=== PATIENT | female | born 1965 | race Caucasian/White ===

== ENCOUNTER 2024-12-23 22:42 | Emergency (ER) | payer MEDICARE, MEDICAID ==
[~2024-12-23] VITALS: Ht 172.7 cm; Wt 92.3 kg
[~2024-12-23 22:42] MED LIST: ALPR-624 PO; BUPR300T99 PO; CHOL10002 PO; CYAN25003 PO; GABA-535 PO; LEVO125T69 PO; LIOT25TA6 PO; METF1000 PO; MORP30TA PO; MULT-620 PO; NALO25TA4 PO; OMEG1CAP2 PO; OXYC-138 PO; PRAS25CA7 PO; TAMS0.4C32 PO
--- NOTE | 2024-12-23 22:47 | Physician Documentation ---
History of Present Illness ~ Stated Complaint: CHEST PAIN Time Seen by MD: 22:46 Primary Medical Doctor: judith [facility] 59-year-old female presenting with chest pain. Per EMS, she arrives from a rehab center. She is there for a complicated injury to her left leg status post surgery. She had an episode of chest pain earlier this evening, that was initially central chest pain and then on the left side. She was given aspirin at the facility. By time of EMS arrival her chest pain had stopped. She is currently asymptomatic. No other interventions during transport. I spoke to the patient and her . They state that she was having heartburn type symptoms all day. She states that when she was eating or drinking she felt like it got stuck in her throat and she was having acid symptoms. This evening, she was sitting, and suddenly developed tightness in her left chest that radiated to her left arm. During this time she felt short of breath and sweaty. It lasted for about 20 minutes. No history of similar pain ever. Currently she denies any pain like this. She denies any history of heart problems except for a heart murmur. She is a nonsmoker. Denies hypertension. She does have high cholesterol. No diabetes. She does report chronic pain in her left leg related to her past surgery. She is in a cast. No posterior calf or thigh tenderness. No pleuritic chest pain. Medication Reconciliation Allergies: Coded Allergies: duloxetine HCl (Unverified Allergy, Intermediate, Rash, 12/23/24) iodine (Verified Allergy, Mild, rash, 04/18/14) during chemo duloxetine (Verified Allergy, Unknown, 03/27/14) hydromorphone (Verified Allergy, Unknown, 04/18/14) tizanidine (Verified Allergy, Unknown, 04/18/14) Scheduled Bupropion HCl (Bupropion Xl), 1 TABLET PO DAILY, (Reported) Cholecalciferol (Vitamin D3) (Vitamin D3), 1 TABLET PO DAILY, (Reported) Cyanocobalamin (Vitamin B-12) (Vitamin B-12), 2,500 MCG PO DAILY, (Reported) Levothyroxine Sodium* (Levoxyl*), 125 MCG PO DAILY, (Reported) Liothyronine Sodium (Cytomel), 1 TAB PO QAM, (Reported) Metformin Hcl* (Glucophage*), 1 TAB PO BID, (Reported) Multivitamins (Multivitamins), 1 EACH PO DAILY, (Reported) Naloxegol Oxalate (Movantik), 1 TAB PO DAILY, (Reported) Hague-3 Fatty Acids/Fish Oil (Fish Oil 1,000 mg Capsule), 1 CAP PO DAILY, (Reported) Prasterone (Dhea) (Dhea 25), 1 CAP PO DAILY, (Reported) Tamsulosin Hcl (Tamsulosin Hcl), 1 CAP PO HS, (Reported) Scheduled PRN Alprazolam* (Xanax*), 1 MG PO TID PRN for for anxiety/agitation, (Reported) Gabapentin (Gabapentin), 2 CAP PO Q6H PRN for muscle spasms, (Reported) Morphine Sulfate (Morphine Sulfate), 30 MG PO BID PRN for pain, (Reported) Oxycodone HCl/Acetaminophen (Endocet 10-325 mg Tablet), 1 TABLET PO TID PRN for breakthrough pain, (Reported) Past Medical History Past Medical History: Anemia, Renal Disease, UTI, Extremity Fracture, Spine Compression Past Surgical History: appendectomy, cholecystectomy, gastric bypass, tonsillectomy Other Past Surgical History: heart cath, back surgery Alcohol Use: Occasionally Drug Use: none Lives with: Family Lives In: Home Review of Systems Respiratory: Reports: shortness of breath Cardiovascular: Reports: chest pain, diaphoresis Gastrointestinal: Reports: nausea; Denies: abdominal pain Physical Exam Physical Exam General: This is a pleasant and overall well-appearing middle-aged woman, at bedside HEENT: Atraumatic, oropharynx is moist Heart: Mild tachycardic, appears regular, normal-appearing peripheral perfusion Lungs: Clear breath sounds bilateral, normal work of breathing, normal oxygen saturation on room air Chest wall: No chest wall tenderness on palpation Abdomen: Soft, nondistended, nontender all quadrants including in the epigastric region Extremities: Warm and well-perfused. Cast over the left lower leg and foot. She is able to wiggle her toes. She does not have sensation in the left toes, but states this is chronic. No posterior calf or thigh tenderness. Neuro: Alert and oriented, no focal deficits Psychiatric: Calm and cooperative with exam Progress Results/Orders Results/Orders Orders - GUERA SANTIAGO MD Chest,Single View (12/23/24 22:46) Monitor (12/23/24 22:46) Saline Lock (12/23/24 22:46) Oxygen (12/23/24 22:46) Electrocardiogram (12/23/24 22:46) Hs Troponin I W Calculations (12/24/24 01:46) Completed Orders - GUERA SANTIAGO MD Chest,Single View (12/23/24 22:46) Cbc/Diff (12/23/24 22:46) PBNP (12/23/24 22:46) CMP (12/23/24 22:46) Hs Troponin I W Calculations (12/23/24 22:46) Hs Troponin I W Calculations (12/24/24 00:46) Vital Signs 12/23/24 12/23/24 12/24/24 12/24/24 22:51 23:05 00:00 01:45 Temp 98.6 Pulse 91 75 76 Resp 17 18 14 14 B/P (MAP) 140/89 126/75 (92) 106/63 (77) Pulse Ox 98 96 96 12/24/24 12/24/24 02:30 02:38 Pulse 75 75 Resp 14 14 B/P (MAP) 133/95 (108) 133/95 Pulse Ox 96 96 Laboratory Tests Test 12/23/24 23:00 12/24/24 01:02 White Blood Count 7.6 Red Blood Count 3.91 L Hemoglobin 11.1 L Hematocrit 32.5 L Mean Corpuscular Volume 83.3 Mean Corpuscular Hemoglobin 28.5 Mean Corpuscular Hemoglobin Concent 34.3 Red Cell Distribution Width 14.8 H Platelet Count 356 Mean Platelet Volume 7.0 L Neutrophils (%) (Auto) 63.5 Lymphocytes (%) (Auto) 26.8 Monocytes (%) (Auto) 5.0 Eosinophils (%) (Auto) 3.8 Basophils (%) (Auto) 0.9 Neutrophils # (Auto) 4.8 Lymphocytes # (Auto) 2.0 Monocytes # (Auto) 0.4 Eosinophils # (Auto) 0.3 Basophils # (Auto) 0.1 CBC Comment Sodium Level 136 Potassium Level 4.6 Chloride Level 98 L Carbon Dioxide Level 26.8 Anion Gap 11 Blood Urea Nitrogen 25 H Creatinine 1.10 H Estimated GFR/1.73 m2 51 BUN/Creatinine Ratio 22.7 H Glucose Level 153 H Calcium Level 9.1 Total Bilirubin 0.2 Aspartate Amino Transf (AST/SGOT) 18 Alanine Aminotransferase (ALT/SGPT) 21 Alkaline Phosphatase 119 H Troponin I High Sensitivity 6 4 Pro-B-Type Natriuretic Peptide 127 H Total Protein 6.3 L Albumin 3.0 L Globulin 3.3 Albumin/Globulin Ratio 0.9 L Chemistry Comments Troponin I High Sens Percent Delta 33 Troponin I Hi Sens Absolute Change -2 EKG/XRAY/CT/US/VASC/MRI EKG : Additional Comment I personally interpreted the EKG and this shows: Sinus rhythm, rate 79, QTC 498, mild J-point elevation in the anterior leads, but no reciprocal ST depression or other acute ischemic changes, incomplete left bundle branch block Chest X-Ray : Additional Comments I personally reviewed the x-ray, and it shows: No focal consolidation, no pulmonary edema, no mediastinal widening Heart Score: Heart Score Response (Comments) Value History Moderate Suspicious 1 EKG Normal 0 Age 45-64 1 Risk Factors 1 or 2 risk factors 1 Troponin Normal limit 0 Total 3 Medical Decision Making Heart Score: 3 Differential Dx:Considerations: Include: angina, chest wall pain, cholelithiasis, CHF, costochondritis, esophageal reflux/spasm, myocardial infarction, pericarditis, pneumonia, pulmonary embolus Assessment 59-year-old female presenting with chest pain. She does have significant symptoms of gastritis and esophagitis as well. By time of my evaluation her chest pain has resolved. Her workup was unremarkable including 2 normal troponins, reassuring EKG, and normal chest x-ray. I had a long discussion with her regarding the results of her testing. I explained I do not know the exact cause of her chest pain, it still could be cardiac although it seen in more likely to be GI related. After this discussion she requested to go home. I feel this is reasonable, she will contact her primary doctor to discuss whether she needs further cardiac testing or a stress test. Return precautions given if she does develop worsening symptoms. Departure Time of Disposition: 02:09 Disposition: 01 HOME / SELF CARE / HOMELESS Impression: Primary Impression: Acute chest pain Condition: Stable Discharge Instructions: Nonspecific Chest Pain, Adult Referrals: NO PRIMARY CARE PROVIDER (PCP) Education Educated: Patient Educated regarding: diagnosis Signature Scribe Signature: na Attestation: GUERA Shepherd MD December 23, 2024 22:47
[2024-12-23 22:51] VITALS: TEMP 98.6
[2024-12-23 23:12] LABS: BASOPHILS # (AUTO) 0.1 X10'3 (0-0.2); BASOPHILS % (AUTO) 0.9 % (0-1); EOSINOPHILS # (AUTO) 0.3 X10'3 (0-0.9); EOSINOPHILS % (AUTO) 3.8 % (0-6); HEMATOCRIT 32.5 % (35.0-45.0); HEMOGLOBIN 11.1 g/dl (12.0-16.0); LYMPHOCYTES % (AUTO) 26.8 % (21-51); MEAN CORPUSCULAR HEMOGLOBIN 28.5 PG (27.0-31.0); MEAN CORPUSCULAR HGB CONC 34.3 g/dL (33.0-36.5); MEAN CORPUSCULAR VOLUME 83.3 FL (78-98); MONOCYTES # (AUTO) 0.4 X10'3 (0-0.9); NEUTROPHILS # (AUTO) 4.8 X10'3 (1.8-7.7); NEUTROPHILS % (AUTO) 63.5 % (42-75); PLATELET COUNT 356 X10'3 (140-440); RED BLOOD COUNT 3.91 X10'6 (4.20-5.60); RED CELL DISTRIBUTION WIDTH 14.8 % (11.5-14.5); WHITE BLOOD COUNT 7.6 X10'3 (4.5-11.0)
--- NOTE | 2024-12-23 23:21 | RADIOLOGY REPORT ---
CHEST RADIOGRAPH Indication: CP Technique: Single frontal view of the chest was obtained COMPARISON: None FINDINGS: Lines and Tubes: None. Multiple surgical clips noted in left axilla. Partially visualized ACDF in ce rvical spine. Lungs: Clear. Pleura: No effusion. No pneumothorax. Cardiomediastinal contours: Unremarkable IMPRESSION: No abnormality demonstrated.
[2024-12-23 23:28] LABS: ALANINE AMINOTRANSFERASE 21 U/L (12-78); ALBUMIN/GLOBULIN RATIO 0.9 (1.1-1.5); ALKALINE PHOSPHATASE 119 IU/L (46-116); BILIRUBIN,TOTAL 0.2 MG/DL (0.1-1.0); BLOOD UREA NITROGEN 25 MG/DL (7-18); BUN/CREATININE RATIO 22.7 (10.0-20.0); CALCIUM 9.1 MG/DL (8.5-10.1); GLUCOSE 153 MG/DL (70-104); TOTAL CARBON DIOXIDE 26.8 MMOL/L (24-32); TOTAL PROTEIN 6.3 G/DL (6.4-8.2); eCRCL 56 ML/MIN; eGFR 51 ML/MIN
[2024-12-23 23:34] LABS: PRO BRAIN NATRIURETIC PEPTIDE 127 PG/ML (0-125)
[2024-12-23 23:43] LABS: ANION GAP 11 (8-16); ASPARTATE AMINO TRANSFERASE 18 U/L (10-37); CHLORIDE 98 MMOL/L (99-107); SODIUM 136 MMOL/L (135-145)
[2024-12-23 23:44] LABS: POTASSIUM 4.6 MMOL/L (3.5-5.1)
[2024-12-24 02:38] VITALS: BP 133/95; PULSE 75; RESP 14; O2SAT 96
--- NOTE | 2024-12-24 08:04 | ELECTROCARDIOGRAPH REPORT ---
[facility] Test Date: 2024-12-23 Test Time: 22:48:09 Pat Name: BAUTISTA HOLDER Department: EMERGENCY ROOM Room: Gender: F [employer] Manager: : [id number] Requested By: GUERA SANTIAGO Order Number: [id number] Reading MD: Measurements Intervals [place] Rate: 79 P: 61 NC: 171 QRS: -2 QRSD: 114 T: 39 QT: 434 QTc: 498 Interpretive Statements Sinus rhythm Incomplete left bundle branch block Minimal ST elevation, anterior leads Borderline prolonged QT interval Please click the below link to view image of tracing.
== END 2024-12-24 02:58 | disposition home or self-care (01) ==
LOC: ER 22:42
DX: R07.89 Other chest pain (principal); R06.02 Shortness of breath; M79.605 Pain in left leg; E78.00 Pure hypercholesterolemia, unspecified; Z88.5 Allergy status to narcotic agent; Z88.8 Allergy status to other drugs, medicaments and biological substances; Z90.49 Acquired absence of other specified parts of digestive tract; Z90.89 Acquired absence of other organs; Z91.041 Radiographic dye allergy status; Z98.84 Bariatric surgery status
CPT/HCPCS: 36415; 71045; 80053; 83880; 84484; 85025; 93005; 99285

== ENCOUNTER 2025-02-04 13:26 | Outpatient (CLI) | payer MEDICARE, MEDICAID ==
[~2025-02-04 13:26] MED LIST changes: +BUPR-551 PO; -BUPR300T99 PO
--- NOTE | 2025-02-05 04:21 | RADIOLOGY REPORT ---
CLINICAL INDICATION: PAIN L FOOT, FX L ANKLE TECHNIQUE: Noncontrast CT of the left lower extremity was performed. Sagittal and coronal reformatted images are provided. COMPARISON: None CT Dose: CTDI volume is 16.8 mGy. Dose-length product is 1053.0 mGy*cm FINDINGS: The bones are demineralized which limits evaluation. There is an intramedullary nail from a retrograd e approach with multiple screws across the tibiotalar joint extending from the calcaneus with tip ter minating in the proximal tibial diaphysis. There is cement block in the distal tibia. The talus is no t visualized. Comminuted fracture noted about the distal tibia. Multiple lucencies in the calcaneus may reflect bone resorption or sequelae of the previous surgery and/or injury. No definite cortical d estruction. Plate and screws noted in the cuboid and across the midfoot joints. Hardware appears inta ct. . Pes planus. Soft tissue swelling of the ankle. IMPRESSION: 1. Postsurgical changes from prior ORIF and arthrodesis in the distal tibia / tibiotalar joint. No ac [place] abnormality. Acquired pes planus. 2. Soft tissue swelling. No definite cortical destruction to suggest osteomyelitis. If there is clin ical concern, 3-phase nuclear medicine bone scan may be obtained. All CT scans at this medical facility are performed using dose modulation techniques as appropriate t o a performed exam including the following: Automated exposure control was utilized; adjustment of th e MA and/or KV according to patient size; and use of iterative reconstruction technique.
== END 2025-02-04 23:59 | disposition home or self-care (01) ==
LOC: RAD 13:26
PROVIDERS: ATTEND Podiatrist Foot & Ankle Surgery
DX: S82.891A Other fracture of right lower leg, initial encounter for closed fracture (principal); S82.892A Other fracture of left lower leg, initial encounter for closed fracture; M79.672 Pain in left foot; Q66.89 Other specified congenital deformities of feet; M19.072 Primary osteoarthritis, left ankle and foot; M21.42 Flat foot [pes planus] (acquired), left foot; M25.472 Effusion, left ankle; M79.671 Pain in right foot; M19.071 Primary osteoarthritis, right ankle and foot; M25.471 Effusion, right ankle; S91.309A Unspecified open wound, unspecified foot, initial encounter; N39.0 Urinary tract infection, site not specified; Z98.1 Arthrodesis status; X58.XXXA Exposure to other specified factors, initial encounter; Y93.9 Activity, unspecified; Y92.89 Other specified places as the place of occurrence of the external cause; Y99.8 Other external cause status
CPT/HCPCS: 73700